=== PATIENT | male | born 1965 | race Caucasian/White ===

== ENCOUNTER 2021-03-26 16:08 | Emergency (ER) | payer OTHER ==
[2021-03-26 16:31] VITALS: BP 162/96; PULSE 87; TEMP 98.2; BMI 29.0
[2021-03-26] MEDS ORDERED: TETRACAINE 0.5% OPHTH SOLN 2 ML BOTTLE ONE (18:24)
[2021-03-26] MEDS ORDERED: ERYTHROMYCIN 0.5% OPHTHALMIC OINTMENT 3.5 GM TUBE ONE (18:24)
[2021-03-26] MEDS ORDERED: FLUORESCEIN NA 1 EA STRIP ONE (18:25)
[2021-03-26] MEDS ORDERED: TETRACAINE 0.5% HCL 0.6ML DROPPER.BOTTLE OD ONE (18:30)
[2021-03-26] MEDS ORDERED: ERYTHROMYCIN 0.5% OPHTHALMIC OINTMENT 3.5 GM TUBE OD ONE (18:30)
[2021-03-26] MEDS ORDERED: FLUORESCEIN NA 1 EA STRIP OD ONE (18:30)
== END 2021-03-26 19:45 | disposition home or self-care (01) ==
LOC: JER 16:08 → JERFT 16:08 → JER 19:45
DX: S05.01XA Injury of conjunctiva and corneal abrasion without foreign body, right eye, initial encounter (principal); W20.8XXA Other cause of strike by thrown, projected or falling object, initial encounter; Y92.513 Shop (commercial) as the place of occurrence of the external cause
CPT/HCPCS: 99283-25